=== PATIENT | male | born 1980 | race American Indian/Alaskan Native ===

== ENCOUNTER 2020-09-12 19:01 | Emergency (ER) | payer SELFPAY ==
[2020-09-12 20:56] VITALS: BP 107/68
--- NOTE | 2020-09-12 22:33 | Emergency Department Report ---
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 States that he gets episodes of dull dull throbbing pain that responds to Lortab. Presents emerge department seeking analgesic pain control and work note. Reports no loss of bowel or bladder no saddle paresthesia no fever chills sweats. MD Complaint: back pain -: Gradual Similar Symptoms Previously: Yes Place: home Improves With: immobilization Worsens With: medication Associated Symptoms: denies: chest pain, numbness, difficulty walking, incontinence, fever/chills, constipation, rash, seizure, shortness of breath, syncope - Related Data Previous Rx's Medication Instructions Recorded Last Taken Type Ketorolac [Toradol] 10 mg PO Q6H PRN #14 tablet 09/12/20 Unknown Rx methOCARBAMOL [Robaxin TAB] 750 mg PO Q8H #14 tablet 09/12/20 Unknown Rx ED Review of Systems ROS: Stated complaint: BACK PAIN Other details as noted in HPI ED Past Medical Hx - Past Medical History Previous Medical History?: No - Surgical History Past Surgical History?: No - Social History Smoking Status: Unknown if ever smoked Substance Use Type: None - Medications Home Medications: Home Medications Medication Instructions Recorded Confirmed Last Taken Type Ketorolac [Toradol] 10 mg PO Q6H PRN #14 tablet 09/12/20 Unknown Rx methOCARBAMOL [Robaxin TAB] 750 mg PO Q8H #14 tablet 09/12/20 Unknown Rx ED Physical Exam - General Limitations: No Limitations ED Course Vital Signs 09/12/20 20:49 Temperature 98.1 F Pulse Rate 64 Respiratory 18 Rate Blood Pressure 107/68 O2 Sat by Pulse 99 Oximetry Critical care attestation.: If time is entered above; I have spent that time in minutes in the direct care of this critically ill patient, excluding procedure time. ED Disposition Clinical Impression: Lumbago Disposition: DC-01 TO HOME OR SELFCARE Is pt being admited?: No Does the pt Need Aspirin: No Condition: Stable Instructions: Acute Back Pain, Adult, Back Injury Prevention, [id number], Back Exercises, Mthe-sj-[id number], Back Injury Prevention Prescriptions: methOCARBAMOL [Robaxin TAB] 750 mg PO Q8H #14 tablet Ketorolac [Toradol] 10 mg PO Q6H PRN #14 tablet PRN Reason: Pain Referrals: DAIJA JEAN MD [Staff Physician] - 3-5 Days Forms: Work/School Release Form
== END 2020-09-12 22:45 | disposition home or self-care (01) ==
LOC: ED 19:01
DX: M54.5 Low back pain (principal); Z79.899 Other long term (current) drug therapy
CPT/HCPCS: 99282

== ENCOUNTER 2021-01-16 11:26 | Emergency (ER) | payer SELFPAY ==
[2021-01-16] MEDS ORDERED: MECLIZINE 25 MG TAB PO ONE (11:46)
[2021-01-16] MEDS ORDERED: SODIUM CHLORIDE 0.9% 1000 ML 1,000 ML IV ONE (11:46)
--- NOTE | 2021-01-16 12:27 | Cat Scan Report ---
CT head/brain wo con INDICATION / CLINICAL INFORMATION: 40 years Male; dizziness with syncopal episode. TECHNIQUE: Routine CT head without contrast. All CT scans at this location are performed using CT dos e reduction for ALARA by means of automated exposure control. COMPARISON: The study is compared to the previous CT of 07/22/2020. FINDINGS: BRAIN / INTRACRANIAL CONTENTS: The brain parenchyma appears to demonstrate appropriate attenuation wi thout significant interval change. The ventricular system remains appropriate in size and configurati on. There is no clear CT evidence of acute intracranial hemorrhage or significant mass effect. ORBITS: There is again note of focal defect involving medial left orbital wall which may be developme ntal or related to previous trauma. This finding is unchanged. There is again note of rounded foreign body on the left supraorbital soft tissues. SINUSES / MASTOIDS: There is minimal mucosal thickening within the visualized maxillary sinuses. Ther e is irregularity of the visualized anterior nasal bones which is also likely related to previous tra wayne. CRANIOCERVICAL JUNCTION: No significant abnormality. ADDITIONAL FINDINGS: None. IMPRESSION: 1. There is no CT evidence of acute intracranial process. Signer Name: Gilson Raphael MD Signed: 01/16/2021 12:21 PM Workstation Name: [id number]
[2021-01-16 12:49] LABS: Bilirubin,Urine NEG (Negative); Blood,Urine NEG (Negative); Color,Urine Yellow (Yellow); Protein,Urine <15 mg/dL mg/dL (Negative); Urobilinogen,Urine < 2.0 mg/dL (<2.0)
[2021-01-16 12:59] LABS: WBC,Urine < 1.0 /HPF (0.0-6.0)
[2021-01-16 13:15] LABS: Basophils # (Auto) 0.1 K/mm3 (0.0-0.1); Basophils % (Auto) 1.9 % (0.0-1.8); Eosinophils # (Auto) 0.1 K/mm3 (0.0-0.4); Eosinophils % (Auto) 1.4 % (0.0-4.3); Hematocrit 37.5 % (35.5-45.6); Hemoglobin 12.2 gm/dl (11.8-15.2); Lymphocytes # (Auto) 2.8 K/mm3 (1.2-5.4); Lymphocytes % (Auto) 45.1 % (13.4-35.0); Mean Corpuscular HGB Conc 33 % (32-34); Mean Corpuscular Volume 70 fl (84-94); Monocytes # (Auto) 0.6 K/mm3 (0.0-0.8); Monocytes % (Auto) 8.8 % (0.0-7.3); Platelet Count 207 K/mm3 (140-440); Red Blood Count 5.36 M/mm3 (3.65-5.03); Red Cell Distribution Width 16.2 % (13.2-15.2)
[2021-01-16 13:33] VITALS: BP 121/66
[2021-01-16 13:38] LABS: Alanine Aminotransferase 8 units/L (7-56); Albumin 4.1 g/dL (3.9-5); BUN/Creatinine Ratio 12; Blood Urea Nitrogen 12 mg/dL (9-20); Calcium 9.2 mg/dL (8.4-10.2); Hemolysis Index 1
--- NOTE | 2021-01-16 13:46 | Emergency Department Report ---
ED Dizziness HPI - General Chief Complaint: Dizziness Stated Complaint: LIGHT HEADED DIZZINESS Time Seen by Provider: 01/16/21 11:42 Source: patient Mode of arrival: Ambulatory Limitations: No Limitations - History of Present Illness Initial Comments: This is a 40-year-old male nontoxic, well nourished in appearance, no acute signs of distress presents to the ED with c/o of dizziness with near syncope times several days. Patient stated 2 weeks ago he had a syncopal episode while opening the oven and standing up. Bystander was present at that time. Patient denies any headache or head trauma. Patient stated the dizziness is worsened with position change. Patient denies any numbness, tingling, headache, stiff neck, chest pain, shortness of breathe, numbness or tingling. Denies any visual changes or blurry vision. Patient stated has allergies to PCN. Complaint: dizziness, lightheadedness, near syncope -: days(s) Description: lightheadedness, near-syncope History of Same: Yes History of Trauma: No Severity: mild Improves With: rest Worsens With: position Associated Symptoms: denies other symptoms. denies: ataxia, chest pain, confusion, cough, diaphoresis, fever/chills, loss of appetite, malaise, rash, seizure, shortness of breath, syncope, weakness - Related Data Previous Rx's Medication Instructions Recorded Last Taken Type Ketorolac [Toradol] 10 mg PO Q6H PRN #14 tablet 09/12/20 Unknown Rx methOCARBAMOL [Robaxin TAB] 750 mg PO Q8H #14 tablet 09/12/20 Unknown Rx Meclizine [Antivert] 12.5 mg PO DAILY PRN #5 tablet 01/16/21 Unknown Rx Allergies Allergy/AdvReac Type Severity Reaction Status Date / Time Penicillins AdvReac Unknown Verified 01/16/21 11:31 ED Review of Systems ROS: Stated complaint: LIGHT HEADED DIZZINESS Other details as noted in HPI Comment: All other systems reviewed and negative Constitutional: denies: chills, fever Eyes: denies: eye pain, eye discharge, vision change ENT: denies: ear pain, throat pain Respiratory: denies: cough, shortness of breath, wheezing Cardiovascular: denies: chest pain, palpitations Endocrine: no symptoms reported Gastrointestinal: denies: abdominal pain, nausea, diarrhea Genitourinary: denies: urgency, dysuria Musculoskeletal: denies: back pain, joint swelling, arthralgia Skin: denies: rash, lesions Neurological: vertigo. denies: headache, weakness, numbness, paresthesias, confusion, abnormal gait Psychiatric: denies: anxiety, depression Hematological/Lymphatic: denies: easy bleeding, easy bruising ED Past Medical Hx - Social History Smoking Status: Unknown if ever smoked Substance Use Type: None - Medications Home Medications: Home Medications Medication Instructions Recorded Confirmed Last Taken Type Ketorolac [Toradol] 10 mg PO Q6H PRN #14 tablet 09/12/20 Unknown Rx methOCARBAMOL [Robaxin TAB] 750 mg PO Q8H #14 tablet 09/12/20 Unknown Rx Meclizine [Antivert] 12.5 mg PO DAILY PRN #5 tablet 01/16/21 Unknown Rx ED Physical Exam - General Limitations: No Limitations General appearance: alert, in no apparent distress - Head Head exam: Present: atraumatic, normocephalic - Eye Eye exam: Present: normal appearance, PERRL, EOMI - ENT ENT exam: Present: normal exam, normal orophraynx - Neck Neck exam: Present: normal inspection, full ROM. Absent: tenderness, meningismus, lymphadenopathy - Expanded Neck Exam Expanded Neck exam: Absent: tenderness, midline deformity, anterior neck swelling, thyroid mass, carotid bruit, tracheal deviation - Respiratory Respiratory exam: Present: normal lung sounds bilaterally. Absent: respiratory distress, wheezes, rales, rhonchi, stridor, chest wall tenderness, accessory muscle use, decreased breath sounds, prolonged expiratory - Cardiovascular Cardiovascular Exam: Present: regular rate, normal rhythm, normal heart sounds. Absent: bradycardia, tachycardia, irregular rhythm, systolic murmur, diastolic murmur, rubs, gallop - GI/Abdominal GI/Abdominal exam: Present: soft, normal bowel sounds. Absent: distended, tenderness, guarding, rebound, rigid, diminished bowel sounds - Extremities Exam Extremities exam: Present: normal inspection, full ROM, normal capillary refill. Absent: tenderness - Back Exam Back exam: Present: normal inspection, full ROM. Absent: tenderness, CVA tenderness (R), CVA tenderness (L), muscle spasm, paraspinal tenderness, vertebral tenderness, rash noted - Neurological Exam Neurological exam: Present: alert, oriented X3, normal gait - Expanded Neurological Exam Expanded Patient oriented to: Present: person, place, time Cranial nerves: EOM's Intact: Normal, Facial Sensation: Normal Cerebellar function: Finger to Nose: Normal Upper motor neuron: Pronator Drift: Normal, Sensory Extinction: Normal Motor strength exam: RUE: 5, LUE: 5, RLE: 5, LLE: 5 Best Eye Response (Gi): (4) open spontaneously Best Motor Response (Gi): (6) obeys commands Best Verbal Response ([place]): (5) oriented [place] Total: 15 - Psychiatric Psychiatric exam: Present: normal affect, normal mood - Skin Skin exam: Present: warm, dry, intact, normal color. Absent: rash ED Course Vital Signs 01/16/21 01/16/21 01/16/21 11:31 11:58 13:22 Temperature 98.3 F Pulse Rate 76 65 55 L Pulse Rate [ Lying] Pulse Rate [ Sitting] Pulse Rate [ Standing] Respiratory 16 16 Rate Blood Pressure 138/85 121/86 Blood Pressure [Lying] Blood Pressure [Sitting] Blood Pressure [Standing] O2 Sat by Pulse 99 100 Oximetry 01/16/21 13:31 Temperature Pulse Rate Pulse Rate [ 53 L Lying] Pulse Rate [ 64 Sitting] Pulse Rate [ 60 Standing] Respiratory Rate Blood Pressure Blood Pressure 121/66 [Lying] Blood Pressure 129/65 [Sitting] Blood Pressure 134/92 [Standing] O2 Sat by Pulse Oximetry - Reevaluation(s) Reevaluation #1: 01/16/21 13:45 Patient is speaking in full sentences with no signs of distress noted. ED Medical Decision Making - Lab Data Result diagrams: 01/16/21 12:50 01/16/21 12:50 Lab Results 01/16/21 01/16/21 01/16/21 Range/Units 12:50 12:50 Unknown WBC 6.3 (4.5-11.0) K/mm3 RBC 5.36 H (3.65-5.03) M/mm3 Hgb 12.2 (11.8-15.2) gm/dl Hct 37.5 (35.5-45.6) % MCV 70 L (84-94) fl MCH 23 L (28-32) pg MCHC 33 (32-34) % RDW 16.2 H (13.2-15.2) % Plt Count 207 (140-440) K/mm3 Lymph % (Auto) 45.1 H (13.4-35.0) % [place] % (Auto) 8.8 H (0.0-7.3) % Eos % (Auto) 1.4 (0.0-4.3) % Baso % (Auto) 1.9 H (0.0-1.8) % Lymph # (Auto) 2.8 (1.2-5.4) K/mm3 [place] # (Auto) 0.6 (0.0-0.8) K/mm3 Eos # (Auto) 0.1 (0.0-0.4) K/mm3 Baso # (Auto) 0.1 (0.0-0.1) K/mm3 Seg Neutrophils % 42.8 (40.0-70.0) % Seg Neutrophils # 2.7 (1.8-7.7) K/mm3 Sodium 138 (137-145) mmol/L Potassium 3.8 (3.6-5.0) mmol/L Chloride 102.4 (98-107) mmol/L Carbon Dioxide 25 (22-30) mmol/L Anion Gap 14 mmol/L BUN 12 (9-20) mg/dL Creatinine 1.0 (0.8-1.3) mg/dL Estimated GFR > 60 ml/min BUN/Creatinine Ratio 12 % Glucose 88 (75-100) mg/dL Calcium 9.2 (8.4-10.2) mg/dL Total Bilirubin 0.40 (0.1-1.2) mg/dL AST 31 (5-40) units/L ALT 8 (7-56) units/L Alkaline Phosphatase 71 (35-129) units/L Total Protein 7.0 (6.3-8.2) g/dL Albumin 4.1 (3.9-5) g/dL Albumin/Globulin Ratio 1.4 % Urine Color Yellow (Yellow) Urine Turbidity Clear (Clear) Urine pH 7.0 (5.0-7.0) Ur Specific [place] 1.013 (1.003-1.030) Urine Protein <15 mg/dl (Negative) mg/dL Urine Glucose (UA) Neg (Negative) mg/dL Urine Ketones Neg (Negative) mg/dL Urine Blood Neg (Negative) Urine Nitrite Neg (Negative) Urine Bilirubin Neg (Negative) Urine Urobilinogen < 2.0 (<2.0) mg/dL Ur Leukocyte Esterase Neg (Negative) Urine WBC (Auto) < 1.0 (0.0-6.0) /HPF Urine RBC (Auto) 1.0 (0.0-6.0) /HPF - EKG Data 01/16/21 11:34 Normal sinus rhythm at [address]. [address] or T wave abnormalities Reviewed and signed by . - Radiology Data [facility] [address] [id number] Cat Scan Report Signed Patient: ADWOA REEVES MR#: [id number] : 1980 Acct:[id number] Age/Sex: 40 / M ADM Date: 01/16/21 Loc: ED Attending Dr: Ordering Physician: BELLE PETE NP Date of Service: 01/16/21 Procedure(s): CT head/brain wo con Accession Number(s): [id number] cc: BELLE PETE NP CT head/brain wo con INDICATION / CLINICAL INFORMATION: 40 years Male; dizziness with syncopal episode. TECHNIQUE: Routine CT head without contrast. All CT scans at this location are performed using CT dose reduction for ALARA by means of automated exposure control. COMPARISON: The study is compared to the previous CT of 07/22/2020. FINDINGS: BRAIN / INTRACRANIAL CONTENTS: The brain parenchyma appears to demonstrate appropriate attenuation without significant interval change. The ventricular system remains appropriate in size and configuration. There is no clear CT evidence of acute intracranial hemorrhage or significant mass effect. ORBITS: There is again note of focal defect involving medial left orbital wall which may be developmental or related to previous trauma. This finding is unchanged. There is again note of rounded foreign body on the left supraorbital soft tissues. SINUSES / MASTOIDS: There is minimal mucosal thickening within the visualized maxillary sinuses. There is irregularity of the visualized anterior nasal bones which is also likely related to previous trauma. CRANIOCERVICAL JUNCTION: No significant abnormality. ADDITIONAL FINDINGS: None. IMPRESSION: 1. There is no CT evidence of acute intracranial process. Signer Name: Gilson Raphael MD Signed: 01/16/2021 12:21 PM Workstation Name: [id number] Transcribed By: MR Dictated By: Gilson Raphael MD Electronically Authenticated By: Gilson Raphael MD Signed Date/Time: 01/16/21 1221 DD/ 1216 TD/TT: - Medical Decision Making This is a 40-year-old man that presents with dizziness with near syncope. Patient is stable and was examined by me. EKG is normal sinus rhythm with no ST abnormalities. Labs are unremarkable. Urine obtained. Orthostatic vital signs obtained and within normal limits. Patient received 1 L of normal saline and Antivert which she stated his symptoms of dizziness has subsided and resolved. Patient is neurologically stable. Patient is notified of the CT results with no questions noted by the patient. Patient was instructed to Follow-up with a primary care doctor in 3-5 days or if symptoms worsen and continue return to emergency room as soon as possible. At time of discharge, the patient does not seem toxic or ill in appearance. No acute signs of distress noted. Patient agrees to discharge treatment plan of care. No further questions noted by the patient. Critical care attestation.: If time is entered above; I have spent that time in minutes in the direct care o f this critically ill patient, excluding procedure time. ED Disposition Clinical Impression: Dizziness, Near syncope Disposition: 01 HOME / SELF CARE / HOMELESS Is pt being admited?: No Does the pt Need Aspirin: No Condition: Stable Instructions: Dizziness, Rlbj-[id number], Near-Syncope, [id number] Additional Instructions: Follow-up with a primary care doctor in 3-5 days or if symptoms worsen and henrique nue return to emergency room as soon as possible. Prescriptions: Meclizine [Antivert] 12.5 mg PO DAILY PRN #5 tablet PRN Reason: Vertigo Referrals: NATE GREY MD [Primary Care Provider] - 3-5 Days SANTY BONILLA MD [Staff Physician] - 3-5 Days Forms: Work/School Release Form(ED) Time of Disposition: 13:47
--- NOTE | 2021-01-23 14:24 | Electrocardiograph Report ---
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
== END 2021-01-16 14:04 | disposition home or self-care (01) ==
LOC: ED 11:26
DX: R42 Dizziness and giddiness (principal); R55 Syncope and collapse; Z88.0 Allergy status to penicillin; Z79.899 Other long term (current) drug therapy
CPT/HCPCS: 36415; 70450; 80053; 81001; 85025; 93005; 96360; 99284; J7030